=== PATIENT | female | born 1940 | race Caucasian/White ===

== ENCOUNTER 2024-02-25 07:13 | Inpatient (IN) | payer MEDICARE, SELFPAY ==
[2024-02-03 13:57] VITALS: BMI 32.9
[2024-02-03 15:00] LABS: Hematocrit 38.2 % (37.0-47.0); Hemoglobin 13.2 g/dL (12.0-16.0); Mean Corp Hgb Conc. 34.6 g/dL (33.0-37.0); Mean Corpuscular Hgb 31.2 pg (27.0-31.0); Mean Corpuscular Volume 90.3 fL (81.0-99.0); Mean Platelet Volume 11.9 fL (7.4-10.4); Platelet Count 177 10^3/uL (130-400); Red Blood Cell Count 4.23 10^6/uL (4.20-5.40); Red Cell Dist. Width 13.1 % (11.5-14.5); White Blood Cell Count 4.6 10^3/uL (4.8-10.8)
[2024-02-03 15:23] LABS: ALT (SGPT) 20 U/L (0-35); AST (SGOT) 28 U/L (14-36); Albumin 4.4 g/dl (3.5-5.0); Alkaline Phosphatase 57 U/L (38-126); Blood Urea Nitrogen 15 mg/dl (7-17); Calcium 9.4 mg/dl (8.4-10.2); Carbon Dioxide 27 mmol/L (22-30); Chloride 103 mmol/L (98-107); Estimated Creatinine Clearance 52 ml/min; Glucose 101 mg/dl (70-99); Potassium 4.6 mmol/L (3.5-5.1); Sodium 135 mmol/L (135-145); Total Bilirubin 0.9 mg/dl (0.2-1.3); Total Protein 6.7 g/dl (6.3-8.2); eGFR > 60.00
[2024-02-04 10:53] LABS: Glycohemoglobin (HgbA1c) 5.3 % (4.0-5.6)
[2024-02-19 09:48] VITALS: BMI 32.9
[2024-02-25] VITALS (20 sets, daily range): BP systolic 115–160; BP diastolic 50–104; PULSE 73; O2SAT 98–99
[2024-02-25] MEDS: TYLENOL 650 MG PO ×3 (08:17→20:03)
[2024-02-25] MEDS: NORMOSOL-R/PLASMALYTE-A 1000 IV ×2 (08:17→12:45)
--- NOTE | 2024-02-25 10:57 | W.DS.TRANS ---
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
-
Discharge Instructions:
Discharge Diagnosis/Procedures R ANDREEA Jacobs 02/25/24
Diet As tolerated
Activity With Walker
Driving Restrictions No driving
Bathing Restrictions OK to Shower
Other Services PT
Instructions:
Stand-Alone Forms:
Changes to Home Medications: Yes
Discharge Medications:
DC Medications w/original date entered in [facility]
atorvastatin 40 mg tablet 40 mg PO HS High cholesterol 03/09/21
cholecalciferol (vitamin D3) 25 mcg (1,000 unit) tablet 1,000 units PO DAILY Supplement 03/09/21
levothyroxine 50 mcg tablet 50 mcg PO DAILY AT 0700 Thyroid 03/09/21
omega-3s 800 mg-dha 186.67 mg-epa 560 mg-fish-vit D3 8.33 mcg capsule (De3 Dry Eye [place] Benefits) 3 tab PO DAILY Supplement ##0 04/05/21
mupirocin 2 % topical ointment 1 applic intranasal BID #1 tube 10/25/22
ramipril 10 mg capsule 10 mg PO Q12H Blood pressure #1 cap 11/07/22
acetaminophen 325 mg tablet 650 mg (2 x 325 mg) PO QID #60 tabs 02/25/24
aspirin 325 mg tablet 325 mg PO DAILY blood clot prevention #1 tab 02/25/24
dexamethasone 4 mg tablet 4 mg PO BID inflammation #6 tabs 02/25/24
docusate sodium 100 mg capsule (Colace) 100 mg PO BID stool softner #1 cap 02/25/24
famotidine 20 mg tablet 20 mg PO HS GI prophylaxis #1 tab 02/25/24
hydrocodone 5 mg-acetaminophen 325 mg tablet 1 tab PO Q6H PRN 1 tab moderate pain or 2 if severe #30 tabs 02/25/24
magnesium hydroxide 400 mg/5 mL oral suspension (Milk of Magnesia) 30 ml PO HS PRN Constipation #1 mL 02/25/24
ondansetron 4 mg disintegrating tablet 4 mg PO Q6H PRN n/v #20 tabs 02/25/24
sennosides 8.6 mg tablet (Senokot) 17.2 mg (2 x 8.6 mg) PO BID laxative #2 tabs 02/25/24
Home Medication Changes
aspirin 325 mg tablet 325 mg PO DAILY blood clot prevention #1 tab 02/25/24�
dexamethasone 4 mg tablet 4 mg PO BID inflammation #6 tabs 02/25/24�
famotidine 20 mg tablet 20 mg PO HS GI prophylaxis #1 tab 02/25/24�
hydrocodone 5 mg-acetaminophen 325 mg tablet 1 tab PO Q6H PRN 1 tab moderate pain or 2 if severe #30 tabs 02/25/24�
ondansetron 4 mg disintegrating tablet 4 mg PO Q6H PRN n/v #20 tabs 02/25/24�
Pending Results: No
--- NOTE | 2024-02-25 14:21 | PTCARENOTE ---
Pt arrived to [facility] from PACU s/p R TKR. Pt AAOx3 but drowsy, NV w/ mild sensation loss from spinal, +pulses, R knee aquacel with scant amunt of drainage, IVF infusing, on 2L NC satting 96%. Pt oriented to call castillo and room, bed locked and in
lowest position, call castillo within reach.
[2024-02-25] MEDS: SYNTHROID 50 MCG PO (15:44)
[2024-02-25] MEDS: ASPIRIN 325 MG PO (17:26)
[2024-02-25] MEDS: ANCEF 5 IV (17:26)
[2024-02-25] MEDS: NORCO 5/325 1 TABLET PO ×2 (17:31→21:41)
[2024-02-25] MEDS: BACTROBAN 2% OINTMENT 1 APPLIC NASAL (20:02)
[2024-02-25] MEDS: DECADRON 4 MG PO (20:03)
[2024-02-25] MEDS: TORADOL 15 MG IV (20:03)
[2024-02-25] MEDS: SENOKOT PO (20:23)
[2024-02-25] MEDS: COLACE PO (20:23)
[2024-02-25] MEDS: PEPCID 20 MG PO (21:38)
[2024-02-25] MEDS: NEURONTIN 300 MG PO (21:38)
[2024-02-25] MEDS: LIPITOR 40 MG PO (21:38)
[2024-02-26] MEDS: TYLENOL PO ×4 (00:42→12:41)
[2024-02-26] MEDS: ANCEF 5 IV (02:58)
[2024-02-26] MEDS: NORCO 5/325 1 TABLET PO ×3 (03:00→12:38)
[2024-02-26 03:11] VITALS: BP 115/55
[2024-02-26] MEDS: SYNTHROID 50 MCG PO (07:24)
[2024-02-26 07:40] VITALS: BP 133/65
[2024-02-26] MEDS: DECADRON 4 MG PO (08:09)
[2024-02-26] MEDS: TORADOL 15 MG IV (08:09)
[2024-02-26] MEDS: MOBIC 15 MG PO (08:09)
[2024-02-26] MEDS: SENOKOT 17.2 MG PO (08:09)
[2024-02-26] MEDS: BACTROBAN 2% OINTMENT 1 APPLIC NASAL (08:09)
[2024-02-26] MEDS: ASPIRIN 325 MG PO (08:09)
[2024-02-26] MEDS: COLACE 100 MG PO (08:09)
--- NOTE | 2024-02-26 10:33 | CM ---
Reviewed the chart notes and spoke with the patient at the bedside. The patient anticipates being discharged to home today with outpatient PT. The patient resides alone in a two story home with a total of five steps to enter. The patient has
available in the home a rolling walker and cane. The patient reports no VN or SNF in the past. The patient confirmed her pharmacy of choice is the [facility]. The patient will have family support in the home each day during her recovery.
CM continues to be available to patient/family and is monitoring medical plan for needs at discharge.
Plan: Discharge to home when medically stable. Patient plans on outpatient PT.
[2024-02-26 11:30] VITALS: BP 142/53
[2024-02-26] MEDS: CYKLOKAPRON 1300 MG PO (12:36)
--- NOTE | 2024-02-26 13:43 | W.PN.ORTHO ---
Today's Communication / Plan
-
d/c
Assessment
.
Distal Motor Intact: Yes
Dressing:
Clean, dry and intact.
Assessment:
Incisional drainage-serous sanguinous-s/p Tranexamic acid-proximal and distal incision w/ staple applied by ortho PA-bandage changed with light pressure dressing
-hemodynamically stable with no drop in hgb nor hypotension
Plan
.
Surgery / Date: R ANDREEA Jacobs 02/25/24
DVT Prophylaxis: Aspirin
Activity:
Out of bed.
PT/OT
Discharge Plan: Home w/ Outpatient PT
Subjective
.
.:
Patient resting comfortably.
Vital Signs and Labs
.
Vital Signs and Labs:
Lab Results
02/03/24 12:35
02/03/24 12:35
Temp Pulse Resp BP Pulse Ox
97.8 F 60 18 142/53 93
02/26/24 11:30 02/26/24 11:30 02/26/24 11:30 02/26/24 11:30 02/26/24 11:30
Non-invasive Hgb result: 13.3
Physical Exam
-
HEENT: No pallor, cyanosis, or jaundice. Throat clear.
NECK: Supple. No JVD.
RESPIRATORY: Lungs clear to auscultation.
CVS: S1, S2 normal. RRR.� No murmur, rub or gallop.
ABDOMEN: Soft, non-tender. No distension. BS+/normal.
EXTREMITIES: strength equal, no calf pain with palpation
GENERAL HANDLING SUPERVISOR: AOx3. No focal deficits. horseradish maker grossly intact
[2024-02-26 13:55] VITALS: BP 126/45; PULSE 62; O2SAT 92
[2024-02-26 14:20] VITALS: BP 127/57; PULSE 86; O2SAT 94
== END 2024-02-26 14:39 | disposition home or self-care (01) | DRG 470 ==
LOC: 2 SOUTH 07:13
PROVIDERS: ADMITTING PHYSICIAN Orthopaedic Surgery; FAMILY PHYSICIAN Internal Medicine
PROC: 0SRC0J9 Replacement of Right Knee Joint with Synthetic Substitute, Cemented, Open Approach (ICD-10-PCS; 2024-02-25)
DX: M17.11 Unilateral primary osteoarthritis, right knee (principal); E03.9 Hypothyroidism, unspecified; I10 Essential (primary) hypertension; M85.80 Other specified disorders of bone density and structure, unspecified site; Z79.890 Hormone replacement therapy; Z79.82 Long term (current) use of aspirin
CPT/HCPCS: 36415; 73560; 80053; 83036; 85027; 87070; 93005; 97116; 97162; 97166; 97530; 97535; C1713; C1776

== ENCOUNTER → 2024-03-24 11:09 | Outpatient (REF) | payer MEDICARE, SELFPAY | LOC: DHCBC/DCA 11:09 | PROVIDERS: ATTENDING PHYSICIAN Nurse Practitioner Gerontology; FAMILY PHYSICIAN Internal Medicine | DX: R07.9 Chest pain, unspecified (principal); R26.2 Difficulty in walking, not elsewhere classified; R06.09 Other forms of dyspnea | CPT/HCPCS: 78452; 93017; A9500; J2785 ==

== ENCOUNTER → 2024-03-26 08:00 | Outpatient (REF) | payer MEDICARE, SELFPAY | LOC: HWRCS 08:00 | PROVIDERS: ATTENDING PHYSICIAN Nurse Practitioner; FAMILY PHYSICIAN Internal Medicine | DX: R07.9 Chest pain, unspecified (principal); R42 Dizziness and giddiness; I45.10 Unspecified right bundle-branch block; I49.3 Ventricular premature depolarization; R00.1 Bradycardia, unspecified | CPT/HCPCS: 93225; 93226; 93306 ==

== ENCOUNTER → 2024-10-01 13:53 | Outpatient (REF) | payer MEDICARE, SELFPAY | LOC: RAD 13:53 | PROVIDERS: ATTENDING PHYSICIAN Podiatrist Foot & Ankle Surgery; FAMILY PHYSICIAN Internal Medicine | DX: M19.079 Primary osteoarthritis, unspecified ankle and foot (principal) | CPT/HCPCS: 73701; Q9967 ==

== ENCOUNTER 2024-10-07 06:21 | Day surgery (SDC) | payer MEDICARE, SELFPAY | END 2024-10-07 11:40 | disposition home or self-care (01) | LOC: GI 06:21 | PROVIDERS: ATTENDING PHYSICIAN Internal Medicine Gastroenterology | DX: Z12.11 Encounter for screening for malignant neoplasm of colon (principal); K57.30 Diverticulosis of large intestine without perforation or abscess without bleeding; K62.89 Other specified diseases of anus and rectum; Z86.0101 Personal history of adenomatous and serrated colon polyps; K62.1 Rectal polyp | CPT/HCPCS: 45380; 88305 ==

== ENCOUNTER → 2024-11-17 08:30 | Outpatient (REF) | payer MEDICARE, SELFPAY | LOC: RAD 08:30 | PROVIDERS: ATTENDING PHYSICIAN Internal Medicine | DX: E04.9 Nontoxic goiter, unspecified (principal) | CPT/HCPCS: 76536 ==

== ENCOUNTER → 2024-12-21 14:04 | Outpatient (REF) | payer MEDICARE, SELFPAY | LOC: WDC 14:04 | PROVIDERS: ATTENDING PHYSICIAN Internal Medicine | DX: Z12.31 Encounter for screening mammogram for malignant neoplasm of breast (principal); M85.852 Other specified disorders of bone density and structure, left thigh | CPT/HCPCS: 77063; 77067; 77080 ==

== ENCOUNTER 2025-01-17 10:09 | Day surgery (SDC) | payer MEDICARE, SELFPAY ==
[2025-01-17] VITALS (13 sets, daily range): BP systolic 121–154; BP diastolic 56–68; BMI 33.4
[2025-01-17] MEDS: TYLENOL 1000 MG PO (10:28)
[2025-01-17] MEDS: MOBIC 15 MG PO (10:28)
[2025-01-17] MEDS: NORMOSOL-R/PLASMALYTE-A 1000 IV (10:30)
--- NOTE | 2025-01-17 13:03 | W.PN.UPDATE ---
Update Note
Progress Note Update
s/p Right Talonavicular arthrodesis
-NWB RLE
-PT/OT
-Pain control prn, home meds sent
-Dressings C/D/I
-Ancef x 3 doses (or until discharge if discharged under 24 hours)
-Will follow
--- NOTE | 2025-01-17 13:38 | HPS.HSE ---
Family Physician
-
Family Physician: NO INTERVIEW UNKNOWN
Chief Complaint
-
post op
History of Present Illness
84-year-old with past medical history for hypothyroidism, hypertension, cholesterol, osteopenia with sharp pain to the right greater than left foot for past few years. Patient failed outpatient conservative therapy. Patient underwent talonavicular
arthrodesis of right foot. Admitted for further management. patient is very sleepy, easily arousable. Patient denied any headache, dizzy or syncope. Patient denied any fever, chills, chest pain, short of breath. Patient denied any abdominal
pain, nausea, vomiting or diarrhea. denied dysuria or hematuria.
Medical History
Past Medical History
Past Medical History: Reports Other
Additional Past Medical History:
Hypothyroidism, hypertension, high cholesterol, osteopenia,
Past Surgical History: Reports Other
Additional Past Surgical History:
Left TKA, cataract surgery, right hip replacement, right knee replacement
Social History
Tobacco: Non-smoker
Alcohol: None
Drug: None
Family History
Family History: Not pertinent
Allergies / Home Medications
Allergies reflects when Allergies were last updated in [facility].
Home Medications with original date entered in [facility]
Allergy/Medication List:
Allergies
Allergy/AdvReac Type Severity Reaction Status Date / Time
sulfamethoxazole (From Allergy [place] Verified 01/17/25 10:07
Bactrim) Aldo
[place]
trimethoprim (From Bactrim) Allergy [place] Verified 01/17/25 10:07
Aldo
[place]
oxycodone AdvReac Itching Verified 01/17/25 10:07
Home Medications
atorvastatin 40 mg tablet 40 mg PO HS High cholesterol 03/09/21
cholecalciferol (vitamin D3) 25 mcg (1,000 unit) tablet 2,000 units PO DAILY@1200 Supplement 03/09/21
levothyroxine 50 mcg tablet 50 mcg PO DAILY AT 0700 Thyroid 03/09/21
aspirin 81 mg tablet,delayed release 81 mg PO HS 01/12/25
carvedilol 3.125 mg tablet 3.125 mg PO BID 01/12/25
omega-3s 800 mg-dha 186.67 mg-epa 560 mg-fish-vit D3 8.33 mcg capsule (De3 Dry Eye [place] Benefits) 3 tab PO DAILY@1200 Supplement 01/12/25
ramipril 10 mg capsule 10 mg PO HS Blood pressure 01/12/25
Review of Systems
-
Constitutional: Reports No Symptoms
EENT: Reports No Symptoms
Respiratory: Reports No Symptoms
Cardiac: Reports No Symptoms
Abdomen/GI: Reports No Symptoms
: Reports No Symptoms
Musculoskeletal: Reports No Symptoms
Skin: Reports No Symptoms
Neurological: Reports No Symptoms
Endocrine: Reports No Symptoms
Hematologic/Lymphatic: Reports No Symptoms
Psych: Reports No Symptoms
Physical Exam
Vital Signs
Vital Signs
Temp Pulse Resp BP Pulse Ox
97.0 F 52 16 154/61 97
01/17/25 13:20 01/17/25 10:20 01/17/25 10:20 01/17/25 10:20 01/17/25 10:20
Physical Exam
General: Well Developed, Well Nourished and No Apparent Distress
HEENT: NormoCephalic, Moist mucous membranes and Atraumatic
Respiratory: Clear
Cardiac: S1/S2 and Regular Rhythm; No Murmur or Rub
GI: Soft, Non Tender, Non Distended and Normal Bowel Sounds; No Organomegaly
Rectal: Deferred by Provider
Musculoskeletal: No Clubbing, No Cyanosis, No Edema and Other (right LE dressing)
Skin: No Rash
Neuro: AO x 3 and Nonfocal/grossly intact
Psych: Calm
Impression/Plan
-
# Status post right Talonavicular arthrodesis
- Nonweightbearing right lower extremity
- PT/OT consulted
- IV Ancef x 3 doses as per orthopedics
- Orthopedics following
# Essential hypertension/hyperlipidemia
- Atorvastatin, Coreg, ramipril continued
#Hypothyroidism
- Levothyroxine
# DVT prophylaxis
- SCD
# CODE STATUS full code
-
[2025-01-17] MEDS: DILAUDID 0.25 MG IV (14:52)
--- NOTE | 2025-01-17 15:45 | PTCARENOTE ---
Patient admitted from PACU post right foot talanov arthrodesis.The patient is alert and oriented.She rates her pain at a 8 out of 10.She did received 0.25 mg of Dilaudid right before she came up to the room.The right foot dressing is intact without
drainage.Vital signs are stable.The patient is in her bed with the call castillo in reach.
[2025-01-17] MEDS: DILAUDID 0.5 MG IV (18:05)
--- NOTE | 2025-01-17 18:30 | W.PN.UPDATE ---
Update Note
Progress Note Update
This is an addendum to H&P written by Shelly Conte on 01/17/2025. �Patient seen and examined dependently with RESTAURANT AREA DIRECTOR.
84-year-old female past medical history of hypothyroidism, hypertension, hypercholesteremia, osteoarthritis, presenting for elective right talonavicular arthrodesis by Dr. Joel.
Nonweightbearing of right lower extremity, PT/OT, Ancef x 3 doses until discharge.
[2025-01-17] MEDS: ANCEF 5 IV (20:04)
[2025-01-17] MEDS: COREG 3.125 MG PO (20:05)
[2025-01-17] MEDS: ASPIR LOW (ENTERIC COATED) 81 MG PO (21:45)
[2025-01-17] MEDS: LIPITOR 40 MG PO (21:45)
[2025-01-17] MEDS: ALTACE 10 MG PO (21:45)
[2025-01-17] MEDS: MOTRIN 200 MG PO (21:51)
--- NOTE | 2025-01-17 23:15 | PTCARENOTE ---
Received from previous RN, pt awake in bed able to make needs known, reports pain 3/10 in RLE. Pt was assisted onto bedpain for mod void,repositioned for comfort and new ice pack provided, call castillo within reach
[2025-01-18] MEDS: DILAUDID 0.5 MG IV ×2 (00:08→03:29)
[2025-01-18 03:15] VITALS: BP 121/53
--- NOTE | 2025-01-18 03:36 | PTCARENOTE ---
Pt reports pain has not been less then a 5/10 since receiving IV Dilaudid @0000. Pt reports Motrin did not give adequate relief. Reached out to [facility] to ask if pt could receive her next PRN Dilaudid 0.5mg IV q4hrs 30 min and reported it could be
given.
[2025-01-18] MEDS: ANCEF 5 IV ×2 (05:03→12:44)
[2025-01-18] MEDS: MOTRIN 200 MG PO (05:51)
[2025-01-18 07:22] LABS: Hematocrit 36.5 % (37.0-47.0); Hemoglobin 12.6 g/dL (12.0-16.0); Mean Corp Hgb Conc. 34.5 g/dL (33.0-37.0); Mean Corpuscular Volume 91.3 fL (81.0-99.0); Platelet Count 146 10^3/uL (130-400); Red Cell Dist. Width 13.6 % (11.5-14.5)
[2025-01-18 07:40] VITALS: BP 123/55
--- NOTE | 2025-01-18 07:40 | W.PN.UPDATE ---
Update Note
Progress Note Update
s/p Right Talonavicular arthrodesis POD #1
-NWB RLE
-PT/OT
-Pain control prn, home meds sent
-Dressings C/D/I
-Ancef x 3 doses (or until discharge if discharged under 24 hours)
-Will follow
[2025-01-18 07:44] LABS: Blood Urea Nitrogen 18 mg/dl (7-17); Calcium 8.7 mg/dl (8.4-10.2); Carbon Dioxide 26 mmol/L (22-30); Chloride 105 mmol/L (98-107); Estimated Creatinine Clearance 67 ml/min; Glucose 118 mg/dl (70-99); Potassium 4.2 mmol/L (3.5-5.1); Sodium 136 mmol/L (135-145); eGFR > 60.00
--- NOTE | 2025-01-18 08:18 | W.PN.HOSP.TC ---
Today's Communication/Plan
-
Discharge today
Assessment / Plan
Assessment / Plan
Physical Exam
General: Well Developed, Well Nourished and No Apparent Distress
HEENT: NormoCephalic, Moist mucous membranes and Atraumatic
Respiratory: Clear
Cardiac: S1/S2 and Regular Rhythm; No Murmur or Rub
GI: Soft, Non Tender, Non Distended and Normal Bowel Sounds; No Organomegaly
Rectal: Deferred by Provider
Musculoskeletal: No Clubbing, No Cyanosis, No Edema and Other (right LE dressing)
Skin: No Rash
Neuro: AO x 3 and Nonfocal/grossly intact
Psych: Calm
Assessment/Plan
84-year-old with past medical history for hypothyroidism, hypertension, cholesterol, osteopenia with sharp pain to the right greater than left foot for past few years. Patient failed outpatient conservative therapy. Patient underwent talonavicular
arthrodesis of right foot. Admitted for further management. Patient was initially very sleepy, easily arousable. Patient denied any headache, dizzy or syncope. Patient denied any fever, chills, chest pain, short of breath. Patient denied any
abdominal pain, nausea, vomiting or diarrhea. denied dysuria or hematuria.
osteoarthritis, presenting for elective right talonavicular arthrodesis by Dr. Joel. Nonweightbearing of right lower extremity, PT/OT, Ancef x 3 doses until discharge.
# Status post Right Talonavicular arthrodesis POD #1
- Nonweightbearing right lower extremity
- PT/OT consulted
- Pain control -- pain meds sent by orthopedics
- IV Ancef x 3 doses as per orthopedics (or until discharge if discharged under 24 hours)
- Orthopedics following
# Essential hypertension/hyperlipidemia
- Atorvastatin, Coreg, ramipril continued
#Osteoarthritis
#Hypothyroidism
- Levothyroxine
# DVT Prophylaxis
- SCD. Lovenox.
# CODE STATUS full code
More than 30 minutes spent in discharge including
Final examination of the patient
Summarizing hospital stay
Instructions for continuing care to all relevant caregivers
Preparation of discharge records, prescriptions, and referral forms
Total time spent (in minutes): 36
Anticipated Discharge: Today
Subjective/Interval History
-
Date of Service: January 18, 2025
Patient was seen and examined. She denied any new significant symptoms or complaints.
Objective Data
-
Labs:
Laboratory Results
01/18/25
06:00
WBC 8.9
Hgb 12.6
Hct 36.5 L
Plt Count 146
Sodium 136
Potassium 4.2
Chloride 105
Carbon Dioxide 26
BUN 18 H
Creatinine 0.6
Glucose 118 H
Calcium 8.7
Vital Signs:
Vital Signs
Temp Pulse Resp BP Pulse Ox
98.5 F 59 14 121/53 97
01/18/25 03:15 01/18/25 03:15 01/18/25 03:15 01/18/25 03:15 01/18/25 03:39
I&O
01/17/25 01/18/25 01/19/25
06:59 06:59 06:59
Intake Total 1180 / 1180
Balance 1180 / 1180
--- NOTE | 2025-01-18 09:39 | CM ---
CM reviewed medical records. CM met with patient in room. Patient stated that her family will provide support post operatively. Patient does not have a history of VN , SNF. Patient has a scooter, walker, shower chair, and light weight transport
chair. Patient is active with his PCP. Patient plans to use [facility] for medication services
PLAN: home with family support.
[2025-01-18] MEDS: COREG PO (10:14)
[2025-01-18] MEDS: ULTRAM 25 MG PO (10:28)
[2025-01-18] MEDS: BENADRYL 25 MG PO (10:29)
--- NOTE | 2025-01-18 11:02 | PTCARENOTE ---
Reports itchy rash to nose and R hand, patchy red areas noted. Dr. Bellamy and Dr. Joel notified via tiger text. Received 25mg PO Benadryl,.
[2025-01-18 11:10] VITALS: BP 121/60
[2025-01-18 11:50] VITALS: BP 124/49; PULSE 54; O2SAT 96
[2025-01-18 11:52] VITALS: BP 124/49; PULSE 54; O2SAT 96
[2025-01-18] MEDS: TYLENOL 650 MG PO (12:47)
[2025-01-18 15:35] VITALS: BP 134/59
--- NOTE | 2025-01-18 15:41 | CM ---
CM discussed home care. Patient declined at this time.
PLAN: home with family support.
--- NOTE | 2025-01-18 16:46 | W.DCSUMMARY ---
Discharge Summary
Discharge Data
Date of Admission: 01/17/25
Date of Discharge: 01/18/25
Total time spent discharging patient (in min): 36
-
Pending Results: No
Hospital Course
84 y/o female with past medical history of hypothyroidism, hypertension, hypercholesterolemia, osteopenia, osteoarthritis, prior orthopedic surgeries and LEGG calves perthes of the right hip presented for elective right talonavicular arthrodesis by
inventory accountant Dr. Joel on 01/17/25. Patient did well after surgery while being observed and stable for discharge without any further antibiotics after discharge.
Discharge Plan
-
Patient Disposition: Home (Routine Discharge)
Discharge Diagnosis/Procedures: # Status post Right Talonavicular arthrodesis POD #1
# Essential hypertension
# Hyperlipidemia
# Osteoarthritis
# Hypothyroidism
Condition: Good
Diet: Low Fat and Low Cholesterol
Activity: Other activity
Additional Activity: Non-weightbearing of the right lower extremity
Activity Restrictions/Additional Instructions:
Activity: Nonweightbearing right lower extremity
Dr. Isac Joel has sent pain medications to your pharmacy. No antibiotics needed after hospital discharge (confirmed with Dr. Isac Joel)
Referrals:
Isac Joel, DPM [Active, Podiatry]
UNKNOWN,NO INTERVIEW [Family Provider]
Prescriptions:
Continued
atorvastatin 40 MG tablet
40 mg PO HS
levothyroxine 50 MCG tablet
50 mcg PO DAILY AT 0700
cholecalciferol (vitamin D3) 1,000 UNITS tablet
2,000 units PO DAILY@1200
aspirin 81 mg Tablet,Delayed Release (Dr/Ec)
81 mg PO HS
carvedilol 3.125 mg Tablet
3.125 mg PO BID
ramipril 10 MG capsule
10 mg PO HS
De3 Dry Eye [place] Benefits 1 EACH capsule
3 tab PO DAILY@1200
Discharge Orders:
Discharge Patient (As Directed); Ordered 01/18/25
Ordered By: Sai Bellamy
Discharge Date and Time
Discharge Date/Time: 01/18/25 17:09
Print Language: SUDANESE
== END 2025-01-18 17:09 | disposition home or self-care (01) ==
LOC: SDS 10:09
PROVIDERS: Registered Nurse; ATTENDING PHYSICIAN Hospitalist
DX: M19.071 Primary osteoarthritis, right ankle and foot (principal); M85.89 Other specified disorders of bone density and structure, multiple sites; I10 Essential (primary) hypertension; E03.9 Hypothyroidism, unspecified; E78.5 Hyperlipidemia, unspecified
CPT/HCPCS: 28740; 73630; 76000; 80048; 85027; 97163; 97167; 97535; C1713; C1776

== ENCOUNTER → 2025-06-14 12:52 | Outpatient (REF) | payer MEDICARE, SELFPAY | LOC: PAVMRI 12:52 | PROVIDERS: ATTENDING PHYSICIAN Student in an Organized Health Care Education/Training Program; FAMILY PHYSICIAN Internal Medicine | DX: M25.512 Pain in left shoulder (principal); M75.100 Unspecified rotator cuff tear or rupture of unspecified shoulder, not specified as traumatic | CPT/HCPCS: 73221 ==